=== PATIENT | male | born 1975 | race Two or more races ===

== ENCOUNTER 2025-06-05 04:14 | Emergency (ER) | payer OTHER ==
[~2025-06-05] VITALS: Ht 167.6 cm; Wt 63.6 kg
[2025-06-05 04:16] VITALS: BP 124/75; PULSE 97; RESP 18; TEMP 98.1; O2SAT 96
--- NOTE | 2025-06-05 04:33 | ED.PDOC ---
HPI Comments PT CAME TO ER WITH CC OF LACERATION TO THE RIGHT EYE, PT STATED THAT HE SLIPPED AND FELL HITTING HIS EYEBROW AREA. PT HAVE A 1 IN LACERATION TO THE RIGHT EYEBROW, BLEEDING CONTROLLED, PT IS A&OX4 RR EVEN AND REGULAR NO DISTRESS NOTED AT THIS TIME. PT DENIES N/V/D CP SOB Chief Complaint: Laceration Time Seen by MD: 04:25 Reviewed Notes: Nurses Notes, Medications, Allergies Allergies: Coded Allergies: NO KNOWN ALLERGIES (Unverified , 06/05/25) Information Source: Patient Mode of Arrival: Ambulatory Complexity: Intermediate Laceration Length (cm): 2 Past Medical History PAST MEDICAL HISTORY: Denies Surgical History: Denies all surgeries Family History Family History: Reviewed,noncontributory to illness Social History Smoker: Non-Smoker Alcohol: Denies ETOH Use Drugs: Denies Drug Use All Other Systems: Reviewed and Negative (SEE HPI ) Physical Exam General Appearance: No Apparent Distress, Normal HEENT: Pharynx Normal Neck: Full Range of Motion, Non-Tender Respiratory: Lungs Clear, No Respiratory Distress, Normal Breath Sounds Cardiovascular: No Edema, No JVD, No Murmur, No Gallop, Normal Peripheral Pulses, Regular Rate/Rhythm Breast Exam: Deferred Gastrointestinal: No Organomegaly, Non Tender, No Pulsatile Mass, Normal Bowel Sounds, Soft Genitalia: Deferred Pelvic: Deferred Rectal: Deferred Extremities: Normal capillary refill, Normal range of motion, Non-tender, No pedal edema Musculoskeletal : Apperance: Normal Neurologic: Alert, No Motor Deficits, Normal Affect, Normal Mood, No Sensory Deficits Cerebellar Function: Normal Reflexes: NOT DONE Skin: Dry, Lacerations (1 IN FULL-THICKNESS LACERATION ABOVE RIGHT EYE ACROSS FOREHEAD AND EYEBROW NOTED FOREIGN BODY SILVER CLEANSED CLEARED HIM REMOVED. BLEEDING CONTROLLED), Normal Color, Warm Lymphatic: No Adenopathy Was a procedure done? Was a procedure done?: Yes Sedation Sedation?: No Informed consent obtained: Yes Laceration Repair : Location RIGHT EYEBROW AND FOREHEAD Length 1 INCH Anesthetic: Lidocaine, With epi Laceration Repair Prep: Saline, by Irrigation Laceration Repair Wound Comple: epidermis/dermis repair Laceration Repair: Number of sutures (6), Simple, Nothing Informed consent obtained: Yes Risks, benefits, and alternati: Yes Notes PATIENT TOLERATED WELL WITH MINIMAL BLOOD LOSS Differential diagnosis Generic Laceration: Fracture, Retained Foriegn Body, Neurovascular Injury, Tendon Injury, Laceration X-Ray, Labs, Meds, VS Vital Signs Date Time Temp Pulse Resp B/P (MAP) Pulse Ox O2 Delivery O2 Flow Rate FiO2 06/05/25 04:16 98.1 97 18 124/75 96 98.1 X-Ray, Labs, Meds, VS Comment SEE PROCEDURE NOTE. PATIENT REFUSED TETANUS PATIENT ADVISED TO FOLLOW UP IN 5-7 DAYS FOR SUTURE REMOVAL ADVISED ON ER RETURN PRECAUTIONS FOR UNCONTROLLED BLEEDING OR SIGNS AND SYMPTOMS OF INFECTION. [id number] TYLENOL OR MOTRIN NEEDED FOR THE PAIN PER LABELED DOSING INSTRUCTIONS. PATIENT INDICATES UNDERSTANDING AND AGREES WITH DISCHARGE PLAN OF CARE. Time of 1ST Reevaluation: 04:25 Reevaluation 1ST: Unchanged Time of 2ND Reevaluation: 05:07 Reevaluation 2ND: Improved Patient Education/Counseling: Diagnosis, Treatment, Prognosis, Need For Follow Up Family Education/Counseling: No Family Present Departure 1 Departure Time of Disposition: 05:06 Impression: Primary Impression: Laceration of eyebrow without complication Qualified Codes: S01.111A - Laceration without foreign body of right eyelid and periocular area, initial encounter Disposition: 01 HOME / SELF CARE / HOMELESS Condition: Stable Discharged With: Self Critical Care Note Critical Care Time?: No Stability Stability form required: LATRICE Simon Jun 05, 2025 04:33
[2025-06-05] MEDS: TETANUS-DIPTH-ACEL PERTUSSIS 0.5ML SYR Tdap IM ONE (05:06)
== END 2025-06-05 05:07 | disposition home or self-care (01) ==
LOC: ER 04:17
DX: S01.111A Laceration without foreign body of right eyelid and periocular area, initial encounter (principal); W01.0XXA Fall on same level from slipping, tripping and stumbling without subsequent striking against object, initial encounter; Y93.89 Activity, other specified; Y92.89 Other specified places as the place of occurrence of the external cause; Y99.8 Other external cause status
CPT/HCPCS: 12011